=== PATIENT | female | born 1995 | race Caucasian/White ===

== ENCOUNTER 2017-08-03 19:35 | Emergency (ER) | payer MEDICAID | END 2017-08-04 01:05 | disposition left against medical advice (07) | LOC: ER 20:11 | DX: R11.10 Vomiting, unspecified (principal); R51 Headache; R09.89 Other specified symptoms and signs involving the circulatory and respiratory systems; Z53.21 Procedure and treatment not carried out due to patient leaving prior to being seen by health care provider ==